=== PATIENT | male | born 1975 | race African-American/Black ===

== ENCOUNTER 2017-09-16 19:26 | Emergency (ER) | payer MEDICAID, OTHER ==
[~2017-09-16] VITALS: Ht 167.6 cm; Wt 82.0 kg
[2017-09-16 21:03] VITALS: BP 128/84
== END 2017-09-16 21:06 | disposition left against medical advice (07) ==
LOC: ER 20:10
DX: R41.82 Altered mental status, unspecified (principal); Z53.21 Procedure and treatment not carried out due to patient leaving prior to being seen by health care provider

== ENCOUNTER 2020-05-31 16:12 | Emergency (ER) | payer MEDICAID ==
[~2020-05-31] VITALS: Ht 177.8 cm; Wt 113.0 kg
[2020-05-31 16:19] VITALS: BP 136/72
== END 2020-05-31 21:23 | disposition left against medical advice (07) ==
LOC: ER 16:12
DX: Z53.21 Procedure and treatment not carried out due to patient leaving prior to being seen by health care provider (principal); I49.9 Cardiac arrhythmia, unspecified
CPT/HCPCS: 93005